=== PATIENT | male | born 1985 | race Caucasian/White ===

== ENCOUNTER 2020-07-11 21:18 | Emergency (ER) | payer MEDICARE, MEDICAID ==
[~2020-07-11] VITALS: Ht 175.3 cm; Wt 62.0 kg
[2020-07-11 21:42] VITALS: BP 117/71
== END 2020-07-12 01:32 | disposition left against medical advice (07) ==
LOC: ER 21:18
DX: Z53.21 Procedure and treatment not carried out due to patient leaving prior to being seen by health care provider (principal)